=== PATIENT | female | born 1960 | race Caucasian/White ===

== ENCOUNTER → 2020-09-01 | Outpatient (CLI) | payer OTHER ==
[~2020-09-01] MED LIST: NORCO 5-325 TA1 EACH PO
== END ==
LOC: EXRD 10:11
DX: Z83.79 Family history of other diseases of the digestive system (principal)
CPT/HCPCS: 76700

== ENCOUNTER → 2021-05-19 | Outpatient (CLI) | payer OTHER | LOC: EXRD 02-24 15:30 | DX: E04.2 Nontoxic multinodular goiter (principal) | CPT/HCPCS: 76536 ==